=== PATIENT | female | born 1955 | race Caucasian/White ===

== ENCOUNTER 2016-12-06 22:00 | Emergency (ER) | payer OTHER ==
[~2016-12-06] VITALS: Ht 165.1 cm; Wt 98.8 kg
[2016-12-07 01:23] VITALS: BP 141/97
== END 2016-12-07 01:24 | disposition home or self-care (01) ==
LOC: EXP 22:00 → EME 22:00 → EXP 12-07 01:24
DX: H43.399 Other vitreous opacities, unspecified eye (principal)
CPT/HCPCS: 99281; 99283

== ENCOUNTER 2017-03-25 17:36 | Inpatient (IN) | payer OTHER ==
[~2017-03-25] VITALS: Ht 165.1 cm; Wt 100.0 kg
[2017-03-25 19:31] LABS: EOSINOPHIL (%) 3.1 % (0-5); EOSINOPHIL COUNT 0.3 K/uL (0-0.3); HEMATOCRIT 38.5 % (36.0-46.0); IMMATURE GRANULOCYTE (%) 0.5 % (0.0-0.7); INSTRUMENT ABS NEUTROPHIL CT 4.5 K/uL; LYMPHOCYTE COUNT 2.7 K/uL (1.0-2.8); MCH 28.9 PG (29.0-34.0); MEAN PLAT.VOLUME 11.4 uM^3 (9.5-12.4); MONOCYTE (%) 6.5 % (3-12); MONOCYTE COUNT 0.5 K/uL (0-0.8); NEUTROPHIL (%) 55.5 % (45-76); NEUTROPHIL COUNT 4.5 K/uL (1.8-6.4); PLATELET COUNT 302 K/uL (156-360); RBC DIS.WIDTH-CV 13.4 % (11.8-14.6); RBC DIS.WIDTH-SD 41.4 % (39-53); RED BLOOD COUNT 4.53 M/uL (3.80-5.20)
[2017-03-25 19:39] LABS: CHLORIDE 102 mEq/L (99-109); SODIUM 139 mEq/L (136-147)
[2017-03-25 19:41] LABS: GLUCOSE 157 mg/dL (70-99)
[2017-03-25 19:42] LABS: ANION GAP 14 MEQ/L (2-14)
[2017-03-25 19:44] LABS: GFR ESTIMATE (CALCULATED) > 59 mL/min/
[2017-03-25 19:45] LABS: UREA NITROGEN (BUN) 19 mg/dL (9-23)
[2017-03-25 19:49] LABS: PTT 23.6 (25-32)
[2017-03-25] MEDS ORDERED: ATENOLOL25 MG PO (21:01)
[2017-03-25] MEDS ORDERED: PROTONIX40 MG PO (21:02)
[2017-03-25] MEDS ORDERED: POTASSIUM CHLO10 ME4 PO (21:02)
[2017-03-25] MEDS ORDERED: FUROSEMIDE40 MG PO (21:04)
[2017-03-25] MEDS ORDERED: VITAMIN D31000 UNIT PO (21:04)
[2017-03-25] MEDS ORDERED: ZYRTEC10 M3 PO (21:04)
[2017-03-26 00:33] VITALS: BP 122/72
[2017-03-26 02:47] LABS: HEMATOCRIT 35.1 % (36.0-46.0); MCH 28.8 PG (29.0-34.0); MCHC 33.6 G/DL (30.0-36.0); MCV 85.6 FL (83-99); MEAN PLAT.VOLUME 11.8 uM^3 (9.5-12.4); PLATELET COUNT 257 K/uL (156-360); RBC DIS.WIDTH-CV 13.4 % (11.8-14.6); RBC DIS.WIDTH-SD 41.6 % (39-53); WHITE BLOOD COUNT 8.3 K/uL (4.1-10.2)
[2017-03-26 03:09] LABS: CHLORIDE 104 mEq/L (99-109); POTASSIUM 3.7 mEq/L (3.7-5.4); SODIUM 138 mEq/L (136-147)
[2017-03-26 03:11] LABS: GLUCOSE 221 mg/dL (70-99)
[2017-03-26 03:13] LABS: ANION GAP 9 MEQ/L (2-14); TOTAL BILIRUBIN 0.3 mg/dL (0.0-1.0)
[2017-03-26 03:15] LABS: ALKALINE PHOSPHATASE 61 IU/L (3-129); GFR ESTIMATE (CALCULATED) > 59 mL/min/
[2017-03-26 03:16] LABS: UREA NITROGEN (BUN) 17 mg/dL (9-23)
[2017-03-26 03:24] VITALS: BP 128/75
[2017-03-26 08:17] VITALS: BP 140/72
[2017-03-26 16:15] VITALS: BP 129/72
[2017-03-26] MEDS ORDERED: ELIQUIS5 MG PO (16:35)
== END 2017-03-26 17:24 | disposition home or self-care (01) | DRG 176 ==
LOC: EME 17:36 → EDOF 22:33 → 5SOUTH 03-26 00:08
PROVIDERS: Emergency Medicine; Hospitalist
DX: I26.99 Other pulmonary embolism without acute cor pulmonale (principal); D68.2 Hereditary deficiency of other clotting factors; R05 Cough; M79.89 Other specified soft tissue disorders; I10 Essential (primary) hypertension; E78.5 Hyperlipidemia, unspecified; K21.9 Gastro-esophageal reflux disease without esophagitis; D68.51 Activated protein C resistance; E66.9 Obesity, unspecified; R91.1 Solitary pulmonary nodule; Z86.711 Personal history of pulmonary embolism; Z86.718 Personal history of other venous thrombosis and embolism; Z68.36 Body mass index [BMI] 36.0-36.9, adult
CPT/HCPCS: 36415; 80048; 80053; 85025; 85027; 85610; 85730; 93005; 93970; 99281; 99285; J7030